=== PATIENT | female | born 1935 ===

== ENCOUNTER 2019-02-01 07:38 | Day surgery (SDC) | payer MEDICARE, OTHER ==
[~2019-02-01 07:38] MED LIST: Buffered Lidocaine 1% SYRIN* 1 ML/SYRINGE INTRADERM ONE; Dexamethasone IV* 4 MG/ML 1 ML (4 MG) IV SLOW PU ONE; Famotidine IV* 10 MG/ML 2 ML (20 mg) IV ONE; Lactated Ringers 1000 ML Bag* 1,000 ML IV SCH
[2019-02-01] MEDS ORDERED: Famotidine IV* 10 MG/ML 2 ML (20 mg) ONE (07:53)
[2019-02-01] MEDS ORDERED: Dexamethasone IV* 4 MG/ML 1 ML (4 MG) ONE (07:53)
[2019-02-01] MEDS ORDERED: fentaNYL* 50 MCG/ML 2 ML VIAL (100 MCG VIAL) ONE (09:41)
[2019-02-01] MEDS ORDERED: Lidocaine 2% PF * 5 ML VIAL ONE (09:42)
[2019-02-01] MEDS ORDERED: Propofol* 10 MG/ML 20 ML BTL ONE ×2 (09:42→11:28)
[2019-02-01] MEDS ORDERED: Bupivacaine 0.25% SDV* 30 ML ONE (10:23)
[2019-02-01] MEDS ORDERED: ceFAZolin 2 GM PREMIX in ORs 2 GM/50 ML BAG ONE (10:41)
[2019-02-01 12:25] VITALS: BP 108/63
--- NOTE | 2019-02-01 13:44 | OP ---
DATE OF OPERATION: 02/01/19 [facility] DATE OF : 37 SURGEON: Santiago Mari MD. CHILD ADOLESCENT PSYCHIATRIST: RAIZA Garrido. An orthopedic assistant was needed for the procedure to aid in positioning of the arm and retraction. ANESTHESIOLOGIST: Dr. Sanders. ANESTHESIA: Local MAC. PRE-OP DIAGNOSIS: Right small finger Dupuytren's contracture. POST-OP DIAGNOSIS: Right small finger Dupuytren's contracture. OPERATIVE PROCEDURE: Excision of Dupuytren's disease, right hand and small finger. 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 We talked about risks and benefits, she wanted to proceed. ESTIMATED BLOOD LOSS: 10 mL. COMPLICATIONS: None. FINDINGS: See above and below. DESCRIPTION OF PROCEDURE: Ms. Reza was seen in the preoperative holding area. The correct site, side, and procedure were identified. We came back to the operating room. The arm was prepped and draped in the usual fashion and a time- out was performed. The arm was exsanguinated with the Esmarch and the tourniquet inflated to 200 mmHg. We made Nicola-type incision over the small finger. Dissection was carried down. The neurovascular bundle was from the cord. A retrovascular abductor cord was noted. This was dissected free. It was released proximally off the abductor tendon and then traced out distally until it was taken off right at the DIP joint flexion crease. Just after the nerve had trifurcated, the nerve was dissected out along the course of the cord and protected as was the digital artery. Once I had fully excised the cord, I had full extension of the finger. She was able to open and close the hand multiple times and had full motion. The wound was irrigated out. Skin was closed with 4 -0 nylon suture. I did release each apex of the flap to provide a little additional skin length. 0.25% plain Marcaine had been infiltrated at the beginning. Wound was dressed with Xeroform, 4x4s, sterile Webril, and then a short arm splint was applied. She was taken to the recovery room in stable condition. [id number] #: [id number] [facility]
== END 2019-02-01 12:27 | disposition home or self-care (01) ==
LOC: OREAST 07:38
PROVIDERS: ATTEND Orthopaedic Surgery Hand Surgery
PROC: 0JNJ0ZZ Release Right Hand Subcutaneous Tissue and Fascia, Open Approach (ICD-10-PCS; principal; 2019-02-01 09:15)
DX: M72.0 Palmar fascial fibromatosis [Dupuytren] (principal); M79.7 Fibromyalgia; G62.9 Polyneuropathy, unspecified; Z85.3 Personal history of malignant neoplasm of breast; Z88.6 Allergy status to analgesic agent; Z90.13 Acquired absence of bilateral breasts and nipples; Z98.1 Arthrodesis status; Z87.440 Personal history of urinary (tract) infections
CPT/HCPCS: 88304; J0690; J1100; J2704; J3010; J3490

== ENCOUNTER 2019-05-10 09:41 | Day surgery (SDC) | payer MEDICARE, OTHER ==
[2019-05-10] MEDS ORDERED: Bupivacaine 0.25% SDV* 30 ML ONE (10:50)
[2019-05-10 12:23] VITALS: BP 128/96
--- NOTE | 2019-05-10 22:54 | OP ---
DATE OF OPERATION: 05/10/19 - [facility] DATE OF : 37 SURGEON: Santiago Mari MD [employer] HAND: RAIZA Garrido ANESTHESIOLOGIST: None. ANESTHESIA: Local only with 0.25% plain Marcaine. PRE-OP DIAGNOSES: 1. Left middle finger mucous cyst. 2. Right ring finger skin and subcutaneous tissue mass. POST-OP DIAGNOSES: 1. Left middle finger mucous cyst. 2. Right ring finger skin and subcutaneous tissue mass. OPERATIVE PROCEDURE: 1. Excision of left middle finger mucous cyst. 2. Excision of right ring finger skin and subcutaneous soft tissue mass. INDICATIONS: Tangela has the aforementioned conditions. We talked about treatment options, risks, and benefits. She wished to proceed. ESTIMATED BLOOD LOSS: 2 mL. COMPLICATIONS: None. FINDINGS: See above and below. DESCRIPTION OF PROCEDURE: Ms. Reza was seen in the preoperative holding area. The correct site, side, and procedures were identified. I numbed up the operative site with 0.25% plain Marcaine. We then came back to the operating room and she was positioned supine. The right hand was then prepped and draped and a time-out was performed. I exsanguinated the right hand and the forearm based tourniquet was inflated to 200 mmHg. I went ahead and ellipsed out the skin around the lesion on the dorsal radial aspect of the right ring finger. This was taken down to the subcutaneous tissue where I performed a marginal excision. The mass to me had the appearance of what looked like an epidermal inclusion cyst. Once I had performed a full marginal excision and there was nothing but healthy looking tissue remaining, I irrigated out the wound and the skin was closed with a 4-0 nylon suture. After I had completed the right ring finger and had the dressing on, I went ahead and turned the stretcher and then we prepped and draped the left hand in the typical fashion. Another time-out was performed. I placed a finger tourniquet on the left middle finger. I then made an L- shaped incision over the dorsal ulnar aspect of the left middle finger distal interphalangeal joint. A full-thickness skin flap was raised up and I very carefully used the Minto blade to separate the mucous cyst, which was in the eponychial and paronychial area from the overlying skin. This was taken right off the sterile matrix as well. After I went ahead and handed the cyst off as a specimen, I then cauterized the area with a Bovie. The interval between the extensor tendon and the collateral ligament was cauterized as well. The wound was irrigated out. The skin was closed with 4-0 nylon suture. Soft dressing was applied and she was then taken to the recovery room in stable condition. [id number]/[facility] #: [id number] MARJORIE
== END 2019-05-10 12:35 | disposition home or self-care (01) ==
LOC: OREAST 09:41
PROVIDERS: ATTEND Orthopaedic Surgery Hand Surgery
DX: L72.0 Epidermal cyst (principal); M79.7 Fibromyalgia; Z85.3 Personal history of malignant neoplasm of breast
CPT/HCPCS: 88304; J3490